=== PATIENT | female | born 1950 | race Caucasian/White ===

== ENCOUNTER 2016-08-31 12:41 | Outpatient (CLI) | payer OTHER | END 2016-08-31 12:42 | disposition home or self-care (01) | DX: T14.8 Other injury of unspecified body region (principal) ==

== ENCOUNTER 2016-09-26 11:26 | Outpatient (CLI) | payer OTHER | END 2016-09-26 11:27 | disposition home or self-care (01) | DX: M79.605 Pain in left leg (principal); R20.2 Paresthesia of skin; R60.0 Localized edema; R93.7 Abnormal findings on diagnostic imaging of other parts of musculoskeletal system ==

== ENCOUNTER 2017-04-17 14:42 | Outpatient (CLI) | payer MEDICARE ==
[2017-04-17 19:28] LABS: CALCIUM 9.6 mg/dL (8.5-10.3); CREATININE 0.6 mg/dL (0.4-1.0); POTASSIUM 3.9 mmol/L (3.5-5.0)
== END 2017-04-17 14:43 | disposition home or self-care (01) ==
LOC: LAB.WCP 14:42
PROVIDERS: ATTEND Family Medicine
DX: R93.8 Abnormal findings on diagnostic imaging of other specified body structures (principal)
CPT/HCPCS: 36415; 80048

== ENCOUNTER 2017-04-28 07:53 | Outpatient (CLI) | payer MEDICARE ==
[2017-04-28] MEDS ORDERED: GADOBUTROL 10 MMOL/10 ML VIAL IVP ONE (08:55)
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
== END 2017-04-28 07:54 | disposition home or self-care (01) ==
LOC: DI 07:53
PROVIDERS: ATTEND Family Medicine
DX: L03.116 Cellulitis of left lower limb (principal); R93.8 Abnormal findings on diagnostic imaging of other specified body structures; S80.12XS Contusion of left lower leg, sequela
CPT/HCPCS: 73720; A9585

== ENCOUNTER 2017-04-29 15:02 | Outpatient (CLI) | payer OTHER, MEDICARE ==
--- NOTE | 2017-04-29 17:04 | Ultrasound Preliminary Report ---
Exam: US Duplex Lwr Ext Arterial LT IMPRESSION: No evidence for hemodynamically significant stenosis. [facility] The call report notification system was initiated by Dr. Cely Mcnulty at 16:57 hrs on 04/29/17. The above findings were discussed with Dr. Levin by Dr. Cely Mcnulty at 17:02 hrs on 04/29/17. SITE ID: [id number]
--- NOTE | 2017-04-29 17:22 | Ultrasound Report ---
EXAM: LEFT LOWER EXTREMITY ARTERIAL DOPPLER ULTRASOUND EXAM DATE: 04/29/2017 03:56 p.m. CLINICAL HISTORY: Cellulitis, open wound. COMPARISON: None. TECHNIQUE: Real-time sonographic vascular imaging was performed by the pipe smoker machine operator, utilizing color-f low, Doppler flow, and spectral analysis. Multiple paper sales representative static images were saved for review . FINDINGS: LEFT LEG: PEST CONTROL SUPERVISOR: PSV 139 cm/sec. Triphasic waveform. PSFA: PSV 115 cm/sec. Triphasic waveform. MSFA: PSV 112 cm/sec. Triphasic waveform. DSFA: PSV 94 cm/sec. Triphasic waveform. PFA: PSV 114 cm/sec. Monophasic waveform. POP: PSV 75 cm/sec. Triphasic waveform. MASTER: PSV 99 cm/sec. Triphasic waveform. YARN BLEACHING MACHINE OPERATOR: PSV 128 cm/sec. Triphasic waveform. PER: PSV 28 cm/sec. Biphasci waveform. DPA: PSV 76 cm/sec. Triphasic waveform. IMPRESSION: No evidence for hemodynamically significant stenosis. [facility] The call report notification system was initiated by Dr. Cely Mcnulty at 16:57 hrs on 04/29/17. The above findings were discussed with Dr. Levin by Dr. Cely Mcnulty at 17:02 hrs on 04/29/17. Referring Provider Line: [phone] SITE ID: [id number]
== END 2017-04-29 15:03 | disposition home or self-care (01) ==
LOC: DI 15:02
PROVIDERS: ATTEND Physician Assistant Medical
DX: L03.116 Cellulitis of left lower limb (principal); S81.802A Unspecified open wound, left lower leg, initial encounter

== ENCOUNTER 2019-08-16 15:17 | Outpatient (CLI) | payer MEDICARE ==
[2019-08-16 18:40] LABS: BASOPHILS # (AUTO) 0.1 10^3/uL (0.0-0.1); EOSINOPHILS # (AUTO) 0.7 10^3/uL (0.0-0.7); EOSINOPHILS % (AUTO) 8.5 %; HGB - HEMOGLOBIN 13.6 g/dL (12.0-16.0); LYMPHOCYTES # (AUTO) 1.9 10^3/uL (1.5-3.5); LYMPHOCYTES % (AUTO) 23.5 %; MEAN CORPUSCULAR HEMOGLOBIN 32.9 pg (27.0-31.0); MEAN CORPUSCULAR VOLUME 99.5 fL (81.0-99.0); MEAN PLATELET VOLUME 10.6 fL (7.9-10.8); MONOCYTES # (AUTO) 0.4 10^3/uL (0.0-1.0); MONOCYTES % (AUTO) 5.3 %; NEUTROPHILS # (AUTO) 4.9 10^3/uL (1.5-6.6); NEUTROPHILS % (AUTO) 61.4 %; PLT - PLATELET COUNT 284 10^3/uL (130-450); RED BLOOD COUNT 4.14 10^6/uL (4.20-5.40); RED CELL DISTRIBUTION WIDTH 13.3 % (12.0-15.0); WHITE BLOOD COUNT 7.9 x10^3/uL (4.8-10.8)
[2019-08-16 18:59] LABS: ALBUMIN 4.6 g/dL (3.2-5.5); ALBUMIN/GLOBULIN RATIO 1.5 (1.0-2.2); ALKALINE PHOSPHATASE 56 IU/L (42-121); ALT ALANINE AMINOTRANSFERASE 35 IU/L (10-60); AST ASPARTATE AMINOTRANSFERASE 29 IU/L (10-42); BILIRUBIN,TOTAL 0.6 mg/dL (0.2-1.0); BUN - BLOOD UREA NITROGEN 27 mg/dL (6-20); CALCIUM 10.4 mg/dL (8.5-10.3); CARBON DIOXIDE - CO2 24 mmol/L (21-32); CHLORIDE 102 mmol/L (101-111); CHOL/HDL RATIO 4.3 (<4.4); CHOLESTEROL 304 mg/dL; CREATININE 0.8 mg/dL (0.4-1.0); GFR - MDRD 71 (>89); GLUCOSE 97 mg/dL (70-100); HDL CHOLESTEROL 70 mg/dL; LDL CHOLESTEROL,CALCULATED 205 mg/dL; LDL/HDL RATIO 2.9 (<4.4); SODIUM 137 mmol/L (135-145); TOTAL PROTEIN 7.6 g/dL (6.7-8.2); VLDL CHOLESTEROL 29 mg/dL
== END 2019-08-16 23:59 | disposition home or self-care (01) ==
LOC: LAB.WCP 15:17
PROVIDERS: ATTEND Nurse Practitioner Family
DX: I10 Essential (primary) hypertension (principal); E78.5 Hyperlipidemia, unspecified; E03.9 Hypothyroidism, unspecified
CPT/HCPCS: 36415; 80053; 80061; 83721; 84443; 85025